=== PATIENT | female | born 1960 | race Caucasian/White ===

== ENCOUNTER 2018-09-10 18:19 | Emergency (ER) | payer BC ==
[2018-09-10] MEDS ORDERED: HYDROmorphone 0.5 MG/0.5 ML Syringe IM ONE (18:56)
[2018-09-10] MEDS ORDERED: Ondansetron 4 MG Tab.DIS PO ONE (18:56)
[2018-09-10] MEDS ORDERED: HYDROmorphone 1 MG/ML Syringe IM ONE (19:03)
--- NOTE | 2018-09-10 19:16 | EDM.PDOC ---
ED HPI GENERAL MEDICAL PROBLEM - General Chief Complaint: Upper Extremity Injury/Pain Stated Complaint: RT ARM INJURY Time Seen by Provider: 09/10/18 18:36 Source of Information: Reports: Patient History Limitations: Reports: No Limitations - History of Present Illness INITIAL COMMENTS - FREE TEXT/NARRATIVE: 58-year-old female presents for evaluation and treatment of an injury to the right arm. Patient reports this occurred earlier this afternoon. She states that she slipped on the ice falling on outstretched right arm. She is reporting pain to the right wrist, elbow and shoulder. She is not taking anything for pain thus far. States she is able to move her fingers but any supination, pronation or any significant movement of the arm causes severe pain. She denies any numbness or tingling to the arm. Patient is right-handed. No head trauma or syncope. Onset: Today Location: Reports: Upper Extremity, Right Right Arm Pain Score (Numeric/FACES): 7 - Related Data Allergies Allergy/AdvReac Type Severity Reaction Status Date / Time Penicillins Allergy Cannot Verified 09/10/18 18:27 Remember Social & Family History - Tobacco Use Smoking Status *Q: Current Status Unknown Review of Systems - Review of Systems Review Of Systems: See Below Musculoskeletal: Reports: Arm Pain (right shoulder, elbow and wrist), Joint Swelling (rigth elbow) Skin: Denies: Wound Neurological: Denies: Numbness, Syncope, Tingling ED EXAM, GENERAL - Physical Exam Exam: See Below Exam Limited By: No Limitations General Appearance: Alert, WD/WN, No Apparent Distress Respiratory/Chest: No Respiratory Distress Cardiovascular: Normal Peripheral Pulses, Regular Rate, Rhythm Peripheral Pulses: 3+: Radial (R) Extremities: Normal Inspection (no obvious deformity to the right shoulder or wrist, swelling to the right elbow), Normal Capillary Refill, Limited Range of Motion (able to wiggle fingers, ROM testing deferred due to pain, ), Other ( tenderness primarily to the right radial head; minor discomfort to the right proximal humerus and the right distal radius; no snuff box tenderness) Neurological: Alert, Oriented, Normal Cognition, No Motor/Sensory Deficits ( reprots good sensation to light touch to the right arm) Psychiatric: Normal Affect, Normal Mood Skin Exam: Warm, Dry, Normal Color ED TRAUMA EXTREMITY PROCEDURES - Splinting Right Upper Extremity Pre-Procedure NV Status: Normal Post-Procedure NV Status: Normal Splint Material: Sling Applied & Form Fitted By: Nurse Provider Post-Splint Application NV Check: NV Status Normal, Good Position Complications: No Course - Vital Signs Last Recorded V/S: Last Vital Signs Temp 98.5 F 09/10/18 18:26 Pulse 80 09/10/18 18:26 Resp 18 09/10/18 18:26 BP 149/80 H 09/10/18 18:26 Pulse Ox 97 09/10/18 18:26 - Orders/Labs/Meds Orders: Active Orders 24 hr Category Date Time Status Peripheral IV Care [RC] . DIRECTED Care 09/10/18 19:52 Active Elbow Min 3V Rt [CR] Stat Exams 09/10/18 18:56 Taken Shoulder Comp Rt [CR] Stat Exams 09/10/18 18:56 Taken Wrist Comp Min 3V Rt [CR] Stat Exams 09/10/18 18:56 Taken Durable Medical Equipment for Discharge [DME for Oth 09/10/18 21:03 Ordered Discharge] [COMM] Stat Peripheral IV Insertion Adult [OM.PC] Routine Oth 09/10/18 19:52 Ordered Meds: Medications Discontinued Medications Generic Name Dose Route Start Last Admin Trade Name Freq PRN Reason Stop Dose Admin Hydromorphone HCl 0.25 mg 09/10/18 18:56 09/10/18 19:10 Dilaudid IM 09/10/18 18:57 Not Given ONETIME ONE Hydromorphone HCl 0.25 mg 09/10/18 19:03 09/10/18 19:08 Dilaudid IM 09/10/18 19:04 0.25 mg ONETIME ONE Administration Hydromorphone HCl 0.5 mg 09/10/18 19:52 09/10/18 20:01 Dilaudid IVPUSH 09/10/18 19:53 0.5 mg ONETIME ONE Administration Ketorolac Tromethamine 30 mg 09/10/18 20:55 09/10/18 21:04 Toradol IVPUSH 09/10/18 20:56 30 mg ONETIME ONE Administration Ondansetron HCl 4 mg 09/10/18 18:56 09/10/18 19:07 Zofran Odt PO 09/10/18 18:57 4 mg ONETIME ONE Administration Ondansetron HCl 4 mg 09/10/18 20:21 09/10/18 20:45 Zofran IVPUSH 09/10/18 20:22 4 mg ONETIME ONE Administration Ondansetron HCl Confirm 09/10/18 20:21 09/10/18 20:29 Zofran Administered 09/10/18 20:22 Not Given Dose 4 mg .ROUTE .STK-MED ONE Sodium Chloride 10 ml 09/10/18 19:52 09/10/18 20:01 Saline Flush FLUSH 10 ml ASDIRECTED PRN Administration Keep Vein Open - Radiology Interpretation Free Text/Narrative:: xray of the right shoulder shows no acute fractures or dislocations. xray of the right elbow shows + anterior and posterior fat pads and a fracture of the right radial head xray of the right wrist shows no acute fractures or dislocations. Formal radiology reads pending. - Re-Assessments/Exams Free Text/Narrative Re-Assessment/Exam: 09/10/18 20:50 Reviewed the xray results with the patient. Will place in a sling and recommend follow-up with ortho. Rx for norco 5-325 and zofran 4mg given from [facility]. Discharge instructions as documented. Departure - Departure Time of Disposition: 20:59 Disposition: Home, Self-Care 01 Condition: Fair Clinical Impression: Radial head fracture - Discharge Information *PRESCRIPTION DRUG MONITORING PROGRAM REVIEWED*: No *COPY OF PRESCRIPTION DRUG MONITORING REPORT IN PATIENT SHELLIE: No Instructions: Radial Head Fracture, [id number] Referrals: Lauren Live PA-C [Primary Care Provider] - Marcus Rivera MD [Physician] - Forms: ED Department Discharge Additional Instructions: Ice the area as much as you are able to. Sling on at all times to help with immobilization. you may remove to shower Prescription for [place] 5-325 #10 given from [facility]. Take 1/2-1 tab every 4-6 hours as needed for pain. [place] can be habit-forming, take as few these as needed to control your pain. Do not drive or operate machinery within 10 hours of taking [place]. You may take [id number] Aleve or ibuprofen for less severe pain. Zofran 1 tab sublingual every 8 hours as needed for nausea. Follow-up with orthopedics next week. Recommend Dr. Rivera. Call [phone] to schedule with him. or you may see Dr. Elaine. Call [phone] to schedule with him. Please return to the ER for symptoms change or worsen. - My Orders Last 24 Hours: My Active Orders 09/10/18 18:56 Elbow Min 3V Rt [CR] Stat Shoulder Comp Rt [CR] Stat Wrist Comp Min 3V Rt [CR] Stat 09/10/18 19:52 Peripheral IV Care [RC] . DIRECTED Peripheral IV Insertion Adult [OM.PC] Routine 09/10/18 21:03 Durable Medical Equipment for Discharge [DME for Discharge] [COMM] Stat - Assessment/Plan Last 24 Hours: My Active Orders 09/10/18 18:56 Elbow Min 3V Rt [CR] Stat Shoulder Comp Rt [CR] Stat Wrist Comp Min 3V Rt [CR] Stat 09/10/18 19:52 Peripheral IV Care [RC] . DIRECTED Peripheral IV Insertion Adult [OM.PC] Routine 09/10/18 21:03 Durable Medical Equipment for Discharge [DME for Discharge] [COMM] Stat
[2018-09-10] MEDS ORDERED: Sodium Chloride 0.9% 10 ML Syringe FLUSH PRN (19:52)
[2018-09-10] MEDS ORDERED: HYDROmorphone 1 MG/ML Syringe IVPUSH ONE (19:52)
[2018-09-10] MEDS ORDERED: Ondansetron 4 MG/2 ML SDV ONE (20:21)
[2018-09-10] MEDS ORDERED: Ondansetron 4 MG/2 ML SDV IVPUSH ONE (20:21)
[2018-09-10] MEDS ORDERED: Ketorolac 30 MG/ML SDV IVPUSH ONE (20:55)
--- NOTE | 2018-09-11 10:27 | CR ---
Right shoulder: Three views of the right shoulder were obtained. Comparison: No prior shoulder exam. Mild joint space narrowing is seen within the acromioclavicular joint. Glenohumeral joint appears within normal limits. No acute fracture or other abnormality is identified. Impression: 1. Nothing acute is appreciated on right shoulder study. Diagnostic code #2
--- NOTE | 2018-09-11 10:27 | CR ---
Right elbow: Three views of the right elbow were obtained. Comparison: No prior elbow study is available. Mildly comminuted and impacted radial head fracture is seen. Slight articular step-off seen up to 2 mm. Incidental spur at the attachment of the common flexor tendon to the medial epicondyle is seen which is incidental. Joint effusion is seen. No additional fracture or other bony abnormality is identified. Impression: 1. Radial head fracture as described above. 2. Other incidental findings as noted above. Diagnostic code #2
--- NOTE | 2018-09-11 10:27 | CR ---
Right wrist: Four views of the right wrist were obtained. Comparison: No prior wrist exam. Joint space narrowing is noted off the distal navicular bone. Small cysts are noted within the hamate bone which are felt to be incidental. No acute fracture, dislocation or other bony abnormality is identified. Impression: 1. Mild degenerative change. 2. Nothing acute is appreciated. Diagnostic code #2
== END 2018-09-10 21:43 | disposition home or self-care (01) ==
LOC: JD.ED 18:19
DX: S52.121A Displaced fracture of head of right radius, initial encounter for closed fracture (principal); W19.XXXA Unspecified fall, initial encounter; Z88.0 Allergy status to penicillin
CPT/HCPCS: 73030; 73080; 73110; 96372; 96374; 96375; 99284; A9270; J1170; J1885; J2405

== ENCOUNTER 2022-02-26 07:38 | Day surgery (SDC) | payer BC ==
[~2022-02-26 07:38] MED LIST: Lactated Ringers 1,000 ML IV SCH; Lidocaine 1%/Sod Bicarbonate in NS 8.4% 1 ML Syringe IDERM PRN; Sodium Chloride 0.9% 10 ML Syringe FLUSH PRN; Sodium Chloride 0.9% 10 ML Syringe FLUSH SCH
[2022-02-26] MEDS ORDERED: Propofol 200 MG/20 ML SDV ONE ×2 (07:54→09:07)
[2022-02-26] MEDS ORDERED: Midazolam 1 MG/ML 2 ML SDV ONE (07:54)
[2022-02-26] MEDS ORDERED: Ondansetron 4 MG/2 ML SDV ONE (08:29)
== END 2022-02-26 10:26 | disposition home or self-care (01) ==
LOC: JD.SDS 07:38
PROVIDERS: ATTEND Surgery
DX: D12.2 Benign neoplasm of ascending colon (principal); K57.30 Diverticulosis of large intestine without perforation or abscess without bleeding; K64.9 Unspecified hemorrhoids; J30.9 Allergic rhinitis, unspecified; L82.1 Other seborrheic keratosis; U09.9 Post COVID-19 condition, unspecified; G62.9 Polyneuropathy, unspecified; F17.210 Nicotine dependence, cigarettes, uncomplicated; Z88.0 Allergy status to penicillin; Z88.1 Allergy status to other antibiotic agents; Z88.8 Allergy status to other drugs, medicaments and biological substances; Z88.2 Allergy status to sulfonamides; Z88.6 Allergy status to analgesic agent; Z79.899 Other long term (current) drug therapy; Z79.891 Long term (current) use of opiate analgesic; Z90.49 Acquired absence of other specified parts of digestive tract; Z90.710 Acquired absence of both cervix and uterus; Z98.890 Other specified postprocedural states; Z80.0 Family history of malignant neoplasm of digestive organs
CPT/HCPCS: 45385; J2405; J2704; J7120; 00811; J2250